=== PATIENT | female | born 1975 | race Two or more races ===

== ENCOUNTER → 2016-11-25 | Outpatient (CLI) | payer BC ==
--- NOTE | ~2016-11-25 | MY29 ---
[facility] A Service of [facility] RADIOLOGY TEXT RESULTS PATIENT: TETE VALERA LOCATION: [facility] : 71 UNIT #: [id number] AGE: [address]: CHARLENE SLADE APRN SEX: F ORDER DR: [id number] [facility] [address] [place], [place] [address] [id number] O MR#: [id number] Acc #: [id number] NAME: TETE VALERA : 1975 SEX: F STUDY DATE/TIME: 11/25/2016 15:46 UNIT: [facility] ROOM: STUDY DESCRIPTION: MY [place] SCREENING W/ CAD BILAT Attending Physician: Charlene Slade Ordering Physician: Marti Slade M.D. Primary Care Physician: Rahat Mcguire M.D. MEDICAL IMAGING REPORT This report is preliminary unless electronic signature is present EXAM Bilateral digital screening mammogram with CAD. INDICATION Breast cancer screening. 41-year-old asymptomatic female who reports unspecified family history of breast cancer. COMPARISON None. Baseline exam. FINDINGS The breast tissue is extremely dense, which may lower the sensitivity of mammography. No suspicious findings are seen. IMPRESSION No mammographic evidence of malignancy. Annual clinical breast exam is recommended. Given the patient's breast density, she would likely benefit from annual screening breast tomosynthesis given increased sensitivity and diminished false positive rate as compared to conventional digital mammography. Patients over the age of 40 are entered into a reminder system with target due date for the next mammogram. A result letter will be sent to the patient. BIRADS: 1 Negative Dictated by... Samuel Garcia M.D. THIS IS AN ELECTRONICALLY VERIFIED REPORT Samuel Garcia M.D. at 11/30/2016 4:10 PM [facility] A Service of [facility] RADIOLOGY TEXT RESULTS PATIENT: TETE VALERA LOCATION: [facility] : 71 UNIT #: [id number] AGE: [address]: CHARLENE SLADE APRN SEX: F ORDER DR: PORFIRIO/estela TD: 11/25/2016 22:57 JOB #: [id number] MEDICAL IMAGING REPORT Page 1 of 1 COPY
== END | disposition home or self-care (01) ==
LOC: CWCC 15:17
DX: Z12.31 Encounter for screening mammogram for malignant neoplasm of breast (principal)
CPT/HCPCS: G0202